=== PATIENT | female | born 1965 | race Hispanic/Latino ===

== ENCOUNTER 2023-06-05 11:49 | Day surgery (SDC) | payer OTHER ==
[2023-06-03 13:28] VITALS: BMI 24.8
[2023-06-05] MEDS ORDERED: Ketorolac Tromethamine 30 MG/ML VIAL ONE (12:17)
[2023-06-05] MEDS ORDERED: Gabapentin 300 MG CAP ONE (12:17)
[2023-06-05] MEDS ORDERED: Acetaminophen 325 MG TAB ONE (12:17)
[2023-06-05 12:34] LABS: Hematocrit 36.7 % (34.9-44.5); Hemoglobin 11.7 g/dL (12.0-15.5); Mean Corpuscular HGB CONC 31.9 g/dL (32.0-36.0); Mean Corpuscular Hemoglobin 26.2 pg (27.0-33.0); Mean Corpuscular Volume 82.3 fl (81.6-98.3); Mean Platelet Volume 9.4 fl (7.4-10.4); Platelet Count 353 10x3/uL (150-450); RBC Distribution Width 14.8 % (11.5-14.5); Red Blood Cell (RBC) Count 4.46 10x6/uL (3.90-5.03); White Blood Cell (WBC) Count 7.5 10x3/uL (3.5-10.5)
[2023-06-05 12:58] LABS: Anion Gap 13 mmol/L (10-20); BUN (Urea Nitrogen) 7 mg/dL (9.8-20.1); Calc. Creatinine Clearance 94 mL/min (70-130); Calcium 9.7 mg/dL (7.8-10.44); Carbon Dioxide 26 mmol/L (22-29); Chloride 105 mmol/L (98-107); Estimated GFR 102; Glucose 105 mg/dL (70-105); Potassium 3.8 mmol/L (3.5-5.1); Sodium 140 mmol/L (136-145)
[2023-06-05] MEDS ORDERED: Tranexamic Acid 1,000 MG/10 ML VIAL ONE (13:22)
[2023-06-05] MEDS ORDERED: EPINEPHrine 1 MG/ML VIAL ONE (13:22)
[2023-06-05] MEDS ORDERED: Bupivacaine PF 0.5% 30 ML VIAL ONE (13:23)
[2023-06-05] MEDS ORDERED: Lidocaine 2% PF 5 ML VIAL ONE (13:28)
[2023-06-05] MEDS ORDERED: PROPOFOL 20 ML ONE (13:28)
[2023-06-05] MEDS ORDERED: Rocuronium Bromide 10 MG/ML (10ML VIAL) ONE (13:28)
[2023-06-05] MEDS ORDERED: fentaNYL 50 mcg/mL 1 mL Vial ONE ×3 (13:28→13:52)
[2023-06-05] MEDS ORDERED: Ropivacaine 0.2% HCl/PF 0 ML ONE (13:35)
[2023-06-05] MEDS ORDERED: CEFAZOLIN 2 GM VIAL ONE (13:40)
[2023-06-05] MEDS ORDERED: Midazolam HCl 2 mg/2 ml Vial ONE (13:52)
[2023-06-05] MEDS ORDERED: KETAMINE 100 MG/ML (5ML VIAL) ONE (14:18)
[2023-06-05] MEDS ORDERED: Ropivacaine 0.2% HCl/PF 20 ML ONE (15:42)
== END 2023-06-05 17:18 | disposition home or self-care (01) ==
LOC: CSHSDC 11:49
PROVIDERS: ATTEND Orthopaedic Surgery
PROC: 0RNJ4ZZ Release Right Shoulder Joint, Percutaneous Endoscopic Approach (ICD-10-PCS; principal; 2023-06-05)
PROC: 0LS34ZZ Reposition Right Upper Arm Tendon, Percutaneous Endoscopic Approach (ICD-10-PCS; principal; 2023-06-05)
PROC: 0RBJ4ZZ Excision of Right Shoulder Joint, Percutaneous Endoscopic Approach (ICD-10-PCS; principal; 2023-06-05)
DX: S43.431A Superior glenoid labrum lesion of right shoulder, initial encounter (principal); S46.011A Strain of muscle(s) and tendon(s) of the rotator cuff of right shoulder, initial encounter; M75.41 Impingement syndrome of right shoulder; E11.9 Type 2 diabetes mellitus without complications; E78.5 Hyperlipidemia, unspecified; Z79.84 Long term (current) use of oral hypoglycemic drugs; Z79.899 Other long term (current) drug therapy; Z91.040 Latex allergy status; W19.XXXA Unspecified fall, initial encounter
CPT/HCPCS: 36415; 80048; 82306; 85027; C1713; J0171; J1885; J2001; J2250; J2704; J2795; J3010; S0020